=== PATIENT | male | born 1975 | race Caucasian/White ===

== ENCOUNTER → 2021-11-01 | Outpatient (CLI) | payer OTHER | LOC: KOH-I 12:13 | DX: M54.2 Cervicalgia (principal); M54.50 Low back pain, unspecified; M47.816 Spondylosis without myelopathy or radiculopathy, lumbar region | CPT/HCPCS: 72040; 72100 ==

== ENCOUNTER 2021-12-02 16:51 | Emergency (ER) | payer OTHER ==
[2021-12-02] MEDS ORDERED: ERYTHROMYCIN O3.5 GM OS (20:05)
== END 2021-12-02 20:17 | disposition home or self-care (01) ==
LOC: ER1 16:51
DX: T15.02XA Foreign body in cornea, left eye, initial encounter (principal); X58.XXXA Exposure to other specified factors, initial encounter
CPT/HCPCS: 65220; 99283